=== PATIENT | female | born 1985 | race Caucasian/White ===

== ENCOUNTER 2018-05-25 21:57 | Emergency (ER) | payer MEDICARE, OTHER ==
[2018-05-25 23:40] VITALS: RESP 18
--- NOTE | 2018-05-26 | ED ---
Psych HPI - General Source: family, police, EMS Mode of arrival: EMS <Emily Salinas - Last Filed: 05/26/18 03:10> - General Source: patient, RN notes reviewed Limitations: no limitations <Willie Tan - Last Filed: 05/26/18 09:27> - General Chief Complaint: Psychiatric Symptoms Stated Complaint: ETOH, Psych Eval Time Seen by Provider: 05/25/18 22:17 - History of Present Illness Initial Comments: Patient seen by myself, Dr. Tan at 9:25 AM. Patient was seen by mental health services and released. Patient states she came to the emergency Department with complaints of depression and thoughts of self-harm. Patient admits to drinking alcohol last night. Patient denies any hallucinations. Patient states she feels better at this time and has no complaints. Patient denies suicidal ideation. Patient does contract for safety. Mental health did see patient and recommended discharge. Patient has no physical complaints and is comfortable with discharge home. (Willie Tan) - Related Data Previous Rx's Medication Instructions Recorded Acetaminophen-Codeine 300-30mg 1 tab PO Q4H PRN #14 tablet 11/08/13 [Tylenol w/codeine #3] Allergies Allergy/AdvReac Type Severity Reaction Status Date / Time sulfamethoxazole Allergy Unknown Verified 11/08/13 16:03 [From Bactrim] trimethoprim [From Bactrim] Allergy Unknown Verified 11/08/13 16:03 Review of Systems ROS Other: All systems not noted in ROS Statement are negative. <Emily Salinas Everette - Last Filed: 05/26/18 03:10> ROS Other: All systems not noted in ROS Statement are negative. Constitutional: Denies: fever Eyes: Denies: eye pain ENT: Denies: ear pain Respiratory: Denies: cough Cardiovascular: Denies: chest pain Endocrine: Denies: fatigue Gastrointestinal: Denies: abdominal pain Genitourinary: Denies: dysuria Musculoskeletal: Denies: back pain Skin: Denies: rash Psychiatric: Reports: as per HPI, depression, suicidal thoughts <Willie Tan - Last Filed: 05/26/18 09:27> ROS Statement: Those systems with pertinent positive or pertinent negative responses have been documented in the HPI. Past Medical History Past Medical History: No Reported History History of Any Multi-Drug Resistant Organisms: None Reported Past Surgical History: Bariatric Surgery, Cholecystectomy Past Psychological History: Anxiety, Depression Smoking Status: Unknown if ever smoked Past Alcohol Use History: Abuse Past Drug Use History: None Reported <Emily Salinas - Last Filed: 05/26/18 03:10> General Exam Limitations: altered mental status <Emily Salinas - Last Filed: 05/26/18 03:10> Limitations: no limitations General appearance: alert Head exam: Present: atraumatic, normocephalic Eye exam: Present: normal appearance Neck exam: Present: normal inspection Respiratory exam: Present: normal lung sounds bilaterally Cardiovascular Exam: Present: regular rate, normal rhythm GI/Abdominal exam: Present: soft. Absent: tenderness, guarding Extremities exam: Present: normal inspection. Absent: tenderness Neurological exam: Present: alert Psychiatric exam: Present: normal affect, normal mood Skin exam: Present: normal color. Absent: abrasion <Willie Tan - Last Filed: 05/26/18 09:27> Course <Emily Salinas - Last Filed: 05/26/18 03:10> <Willie Tan - Last Filed: 05/26/18 09:27> Vital Signs 05/25/18 23:10 Temperature 98.8 F Pulse Rate 102 H Respiratory 18 Rate Blood Pressure 154/80 O2 Sat by Pulse 99 Oximetry - Reevaluation(s) Reevaluation #1: Face to face evaluation of patient in restraints. Pt swearing and upset. Discussed removal of restraints as soon as possible with cooperation and when pt no longer threat to staff safety. 05/25/18 22:54 (Emily Salinas) Procedures - Restraint - Face to Face Restraint Occurrence 1 Patient's Immediate Situation: Endangers staff safety (charging at staff, swearing yelling, making threats) Patient's Reaction to the Intervention: Angry, Aggressive, Restless Patient's Medical & Behavioral Condition: Awake, Alert, Follows directions Need to Continue or Terminate Restraint or Seclusion: Continue (will reaccess) <Emily Salinas - Last Filed: 05/26/18 03:10> <Willie Tan - Last Filed: 05/26/18 09:27> - Restraint - Face to Face Restraint Occurrence 1 Patient's Medical & Behavioral Condition - Comment: suicidal ideations-petition (Emily Salinas) - Lab Data Lab Results 05/26/18 05/26/18 Range/Units 00:54 00:54 Urine Color Yellow Urine Appearance Clear (Clear) Urine pH 5.5 (5.0-8.0) Ur Specific [place] 1.009 (1.001-1.035) Urine Protein Negative (Negative) Urine Glucose (UA) Negative (Negative) Urine Ketones Trace H (Negative) Urine Blood Negative (Negative) Urine Nitrite Negative (Negative) Urine Bilirubin Negative (Negative) Urine Urobilinogen <2.0 (<2.0) mg/dL Ur Leukocyte Esterase Negative (Negative) Urine Opiates Screen Not Detected (NotDetected) Ur Oxycodone Screen Not Detected (NotDetected) Urine Methadone Screen Not Detected (NotDetected) Ur Propoxyphene Screen Not Detected (NotDetected) Ur Barbiturates Screen Not Detected (NotDetected) U Tricyclic Antidepress Not Detected (NotDetected) Ur Phencyclidine Scrn Not Detected (NotDetected) Ur Amphetamines Screen Not Detected (NotDetected) U Methamphetamines Scrn Not Detected (NotDetected) U Benzodiazepines Scrn Detected H (NotDetected) Urine Cocaine Screen Not Detected (NotDetected) U Marijuana (THC) Screen Detected H (NotDetected) Disposition <Emily Salinas - Last Filed: 05/26/18 03:10> Is patient prescribed a controlled substance at d/c from ED?: No Time of Disposition: 09:27 <Willie Tan - Last Filed: 05/26/18 09:27> Clinical Impression: Depression Disposition: HOME SELF-CARE Condition: Stable Instructions (If sedation given, give patient instructions): Depression (ED) Additional Instructions: Please follow-up with mental health services as directed. Please also follow- up with primary care physician in the next day or 2 for recheck. Return for thoughts of self-harm, worsening symptoms, or other concerns. Referrals: Juan Francisco Hess MD [REFERRING] - 1-2 days
[2018-05-26] MEDS ORDERED: diphenhydrAMINE 50 MG/ML 1 ML VIAL IM STA (00:27)
[2018-05-26] MEDS ORDERED: LORazepam 2 MG/ML INJ IM STA (00:27)
[2018-05-26] MEDS ORDERED: HALOPERIDOL LACTATE 5 MG/ML 1 ML VIAL IM STA (00:48)
[2018-05-26 01:31] LABS: Amphetamine Screen,Urine Not Detected (NotDetected); Barbiturate Screen,Urine Not Detected (NotDetected); Benzodiazepines Screen,Urine Detected (NotDetected); Cocaine Screen,Urine Not Detected (NotDetected); Methadone Screen, Urine Not Detected (NotDetected); Opiate Screen,Urine Not Detected (NotDetected); Oxycodone Screen, Urine Not Detected (NotDetected); Phencyclidine Screen,Urine Not Detected (NotDetected); Tricyclic Antidepressant,Urine Not Detected (NotDetected); Urn Cannabinoid Scrn Detected (NotDetected)
[2018-05-26 02:39] LABS: Appearance,Urine Clear (Clear); Bilirubin,Urine Negative (Negative); Blood,Urine Negative (Negative); Color,Urine Yellow; Glucose,Urine (UA) Negative (Negative); Ketones,Urine Trace (Negative); Leukocyte Esterase,Urine Negative (Negative); Nitrite,Urine Negative (Negative); PH, Urine 5.5 (5.0-8.0); Protein,Urine Negative (Negative); Specific Gravity,Urine 1.009 (1.001-1.035); Urobilinogen,Urine <2.0 mg/dL (<2.0)
[2018-05-26 10:15] VITALS: BP 140/68; PULSE 99; TEMP 97.9
== END 2018-05-26 10:13 | disposition home or self-care (01) ==
LOC: EC 21:57
DX: F32.9 Major depressive disorder, single episode, unspecified (principal); Z88.1 Allergy status to other antibiotic agents; Z88.2 Allergy status to sulfonamides
CPT/HCPCS: 81003; 80306; 99284; 96372 ×3; J2060; J1200; J1630; 82075